=== PATIENT | male | born 1995 | race Caucasian/White ===

== ENCOUNTER 2024-02-11 15:12 | Emergency (ER) | payer MEDICAID ==
[~2024-02-11] VITALS: Ht 182.9 cm; Wt 118.8 kg
[2024-02-11 15:19] VITALS: BP_SYST 158; PULSE 88; RESP 18; TEMP 98.3; O2SAT 98
[2024-02-11 16:25] VITALS: BP_SYST 152; PULSE 88; RESP 18; TEMP 98.3; O2SAT 98
== END 2024-02-11 16:28 | disposition home or self-care (01) ==
LOC: SED 15:12
DX: R76.11 Nonspecific reaction to tuberculin skin test without active tuberculosis (principal); Z79.899 Other long term (current) drug therapy
CPT/HCPCS: 71045; 99283

== ENCOUNTER 2024-02-14 16:57 | Emergency (ER) | payer MEDICAID ==
[~2024-02-14] VITALS: Ht 182.9 cm; Wt 117.9 kg
[2024-02-14] MEDS ORDERED: CLIN-142 PO (17:18)
[2024-02-14] MEDS ORDERED: IBUP-1969 PO (17:18)
[2024-02-14 17:29] VITALS: BP_SYST 171; PULSE 60; RESP 20; TEMP 98.1; O2SAT 99
[2024-02-14 18:07] VITALS: BP_SYST 159; PULSE 69; RESP 18; TEMP 98.1; O2SAT 99
== END 2024-02-14 18:07 | disposition home or self-care (01) ==
LOC: SED 16:57
DX: K02.9 Dental caries, unspecified (principal); K08.89 Other specified disorders of teeth and supporting structures; Z79.899 Other long term (current) drug therapy
CPT/HCPCS: 99283

== ENCOUNTER 2024-02-27 17:39 | Emergency (ER) | payer MEDICAID ==
[~2024-02-27] VITALS: Ht 182.9 cm; Wt 122.5 kg
[~2024-02-27 17:39] MED LIST: CLIN-142 PO; IBUP-1969 PO
[2024-02-27 17:57] VITALS: BP_SYST 178; PULSE 87; RESP 18; TEMP 97.2; O2SAT 99
[2024-02-27] MEDS: ASPIRIN 81 MG TAB.CHEW PO ONE (18:49)
[2024-02-27] MEDS: METOPROLOL TARTRATE 25 MG TABLET PO ONE (18:49)
[2024-02-27] MEDS: LABETALOL HCL 20 MG/4 ML CARTRIDGE IVP ONE (18:51)
[2024-02-27 19:01] LABS: BASOPHILS % (AUTO) 0.3 % (0.0-2.0); EOSINOPHILS # (AUTO) 0.2 K/uL (0.0-0.4); EOSINOPHILS % (AUTO) 2.3 % (0.0-4.0); HEMATOCRIT 42.8 % (36-54); HEMOGLOBIN 14.7 g/dL (14.0-18.0); LYMPHOCYTES # (AUTO) 3.4 K/uL (1.0-5.5); LYMPHOCYTES % (AUTO) 38.2 % (20.5-51.5); MEAN CORPUSCULAR HEMOGLOBIN 29 pg (27-31); MEAN CORPUSCULAR HGB CONC 34 % (32-36); MEAN CORPUSCULAR VOLUME 85 fL (79.0-98.0); MONOCYTES # (AUTO) 0.9 K/uL (0.0-1.0); NEUTROPHILS # (AUTO) 4.4 K/uL (1.8-7.7); NEUTROPHILS % (AUTO) 49.2 % (40.0-70.0); PLATELET COUNT (AUTO) 209 K/uL (130-430); RED BLOOD CELL COUNT(AUTO) 5.02 MIL/uL (4.2-6.2); RED CELL DISTRIBUTION WIDTH 15.4 % (9.0-15.0); WHITE BLOOD COUNT (AUTO) 8.9 K/uL (4.8-10.8)
[2024-02-27 19:09] LABS: ANION GAP 10 (5-15); CALCIUM 9.4 mg/dL (8.4-11.0); CARBON DIOXIDE 25 mmol/L (23-29); CHLORIDE 107 mmol/L (98-107); CREATININE 0.83 mg/dL (0.55-1.30); GFR AFRICAN AMERICAN 141 mL/min (>90); GFR NON AFRICAN-AMERICAN 116 mL/min (>90); GLUCOSE 100 mg/dL (74-106); POTASSIUM 3.7 mmol/L (3.5-5.1); SODIUM SERUM 142 mmol/L (136-145); UREA NITROGEN, BLOOD 12 mg/dL (8-21)
[2024-02-27 19:41] LABS: BARBITURATE, URINE NEGATIVE (NEG <=200); BENZODIAZEPINE, URINE NEGATIVE (NEG <=150); CANNABINOID, URINE NEGATIVE (NEG <=50); COCAINE, URINE NEGATIVE (NEG <=150); METHAMPHETAMINES SCREEN,URINE NEGATIVE (NEG <=500); OPIATE, URINE NEGATIVE (NEG <=100); PHENCYCLIDINE SCREEN,URINE NEGATIVE (NEG <=25); UR TRICYCLIC ANTIDEPRESSANTS NEGATIVE (NEG <=300); URINE AMPHETAMINE NEGATIVE (NEG <=500); URINE METHADONE NEGATIVE (NEG <=200); URINE OXYCODONE SCREEN NEGATIVE (NEG <=100)
[2024-02-27] MEDS: KETOROLAC TROMETHAMINE 30 MG VIAL IVP ONE (21:02)
[2024-02-27] MEDS ORDERED: METO25TA3 PO (21:11)
[2024-02-27] MEDS ORDERED: IBUP-1969 PO (21:11)
[2024-02-27 21:25] VITALS: BP_SYST 148; PULSE 76; RESP 20; TEMP 98.4; O2SAT 97
== END 2024-02-27 21:25 | disposition home or self-care (01) ==
LOC: SED 17:39
DX: I10 Essential (primary) hypertension (principal); R51.9 Headache, unspecified; F15.10 Other stimulant abuse, uncomplicated; Z91.118 Patient's noncompliance with dietary regimen for other reason; Z79.899 Other long term (current) drug therapy
CPT/HCPCS: 99285; 96374; 70450; 71045; 96375; 80307; 80048; 83880; 85025; 84484; 36415; 93005; J1885